=== PATIENT | male | born 1980 | race African-American/Black ===

== ENCOUNTER 2019-11-28 15:34 | Emergency (ER) | payer SELFPAY ==
[~2019-11-28] VITALS: Ht 185.4 cm; Wt 73.6 kg
[2019-11-28] MEDS ORDERED: BACITRACIN ZINC OINT UDPKT TOP ONE (16:30)
[2019-11-28 17:36] VITALS: BP 140/86
== END 2019-11-28 17:43 | disposition home or self-care (01) ==
LOC: ER 15:34
DX: L84 Corns and callosities (principal); E11.9 Type 2 diabetes mellitus without complications; I10 Essential (primary) hypertension; Z59.0 Homelessness
CPT/HCPCS: 99282